=== PATIENT | female | born 1960 | race Caucasian/White ===

== ENCOUNTER 2018-11-13 22:25 | Inpatient (IN) | payer OTHER ==
[~2018-11-13] VITALS: Ht 162.6 cm; Wt 86.9 kg
--- NOTE | 2018-11-13 22:58 | NUR ---
PT HERE FOR ADB PAIN. PT IN BATHROOM. WAITING FOR PT TO RETURN FOR PIV AND BLOOD DRAW.
[2018-11-13] MEDS ORDERED: SODIUM CHLORIDE 0.9% 1,000ML IVBOLUS ONE (23:00)
[2018-11-13] MEDS ORDERED: SODIUM CHLORIDE FLUSH 10ML SYR IVF ONE (23:00)
[2018-11-13] MEDS ORDERED: HYDROmorphone 1 MG/ML, 1ML IV ONE (23:00)
[2018-11-13] MEDS ORDERED: ONDANSETRON 2MG/ML, 2ML IVPush ONE (23:00)
[2018-11-13] MEDS ORDERED: ONDANSETRON 2MG/ML, 2ML ONE (23:13)
[2018-11-13] MEDS ORDERED: HYDROmorphone 2 MG/ML, 1ML ONE (23:14)
[2018-11-13 23:17] LABS: BASOPHILS # (AUTO) 0.02 x10^3/uL (0-0.1); BASOPHILS % (AUTO) 0 % (0-1); EOSINOPHILS # (AUTO) 0.23 x10^3/uL (0-0.4); EOSINOPHILS % (AUTO) 3 % (1-7); LYMPHOCYTES # (AUTO) 1.24 x10^3/uL (1-3.4); LYMPHOCYTES % (AUTO) 14 % (22-44); MD NO; MEAN CORPUSCULAR HEMOGLOBIN 28.9 pg (27.0-34.8); MEAN CORPUSCULAR HGB CONC 33.7 g/dL (32.4-35.8); MEAN CORPUSCULAR VOLUME 85.8 fL (80-100); MEAN PLATELET VOLUME 7.7 fL (7.4-10.4); MONOCYTES # (AUTO) 0.75 x10^3/uL (0.2-0.8); MONOCYTES % (AUTO) 9 % (2-9); NEUTROPHILS # (AUTO) 6.57 x10^3/uL (1.8-6.8); NEUTROPHILS % (AUTO) 75 % (42-75); PLATELET COUNT 175 x10^3/uL (130-400); RED BLOOD COUNT 4.74 x10^6/uL (3.82-5.3); RED CELL DISTRIBUTION WIDTH 15.3 % (9.6-15.2)
[2018-11-13 23:27] LABS: ALANINE AMINOTRANSFERASE 38 U/L (12-78); ALBUMIN 4.2 g/dL (3.4-5.0); ANION GAP 6 mmol/L (5-15); CALCIUM 13.8 mg/dL (8.5-10.1); CHLORIDE 101 mmol/L (98-107); CREATININE 1.03 mg/dL (0.55-1.02)
[2018-11-13 23:30] LABS: ALKALINE PHOSPHATASE 91 U/L (45-117); BILIRUBIN,TOTAL 0.5 mg/dL (0.2-1.0); TOTAL PROTEIN 7.7 g/dL (6.4-8.2); TROPONIN I < 0.015 ng/mL (0.000-0.045)
--- NOTE | 2018-11-13 23:40 | NUR ---
PIV PLACED. PT MEDICATED FOR PAIN. FAMILY AT BEDSIDE. CALL LIGHT IN REACH
[2018-11-13 23:43] LABS: INTERNATIONAL NORMALIZED RATIO 1.02 (0.93-1.1); PROTHROMBIN TIME 10.8 Seconds (9.6-11.5)
[2018-11-13] MEDS ORDERED: OMNIPAQUE 350 MG/ML, 100ML BOTTLE ONE (23:58)
[2018-11-14 00:01] LABS: MICROSCOPIC INDICATED
[2018-11-14 00:04] LABS: CULTURE INDICATED? NO
[2018-11-14] MEDS ORDERED: MORP-52 PO (00:52)
[2018-11-14] MEDS ORDERED: CALCIUM CARBONATE 500 MG TAB.CHEW PO PRN (01:00)
[2018-11-14 01:13] VITALS: BP 147/78
[2018-11-14] MEDS: D5%-0.9% NACL 1,000 ML IV SCH ×3 (01:57→19:50)
[2018-11-14] MEDS ORDERED: LABETALOL 5MG/ML, 20ML IVPush PRN (02:00)
[2018-11-14] MEDS ORDERED: ONDANSETRON ODT 4 MG PO PRN (02:00)
[2018-11-14] MEDS ORDERED: PROMETHAZINE 25 MG/ML, 1ML IM PRN (02:00)
[2018-11-14] MEDS ORDERED: morphine SULFATE 10 MG/ML, 1ML IVPush PRN (02:00)
[2018-11-14] MEDS ORDERED: BISACODYL 10 MG SUPP PR PRN (02:00)
[2018-11-14] MEDS ORDERED: POLYETHYLENE GLYCOL 17 GM PACKET PO PRN (02:00)
[2018-11-14] MEDS ORDERED: hydrALAzine 20 MG/ML, 1ML IVPush PRN (02:00)
[2018-11-14] MEDS ORDERED: ONDANSETRON 2MG/ML, 2ML IVPush PRN (02:00)
[2018-11-14] MEDS: GABAPENTIN 300 MG CAPSULE PO PRN ×2 (02:28→17:43)
[2018-11-14] MEDS ORDERED: FAMOTIDINE 20 MG/2 ML IVPush ONE (02:30)
[2018-11-14 02:37] LABS: HEMOGLOBIN A1C 5.9 % (4.2-6.3)
[2018-11-14 02:39] LABS: FREE T4 (FREE THYROXINE) 1.38 ng/dL (0.76-1.46); THYROID STIMULATING HORMONE 0.384 mIU/L (0.358-3.740)
[2018-11-14 08:17] VITALS: BP 119/75
[2018-11-14] MEDS: SENNA/DOCUSATE TABLET PO SCH (10:47)
[2018-11-14] MEDS: HYDROcodone/APAP 5/325 TABLET PO PRN ×3 (10:47→20:52)
[2018-11-14] MEDS: FAMOTIDINE 20 MG/2 ML IVPush SCH ×2 (10:47→19:50)
[2018-11-14] MEDS ORDERED: LIDOCAINE-MPF 1%, 5ML ONE (13:17)
[2018-11-14] MEDS ORDERED: FLUMAZENIL 0.1 MG/1 ML, 5ML ONE (13:42)
[2018-11-14] MEDS ORDERED: MIDAZOLAM 1 MG/ML, 5ML ONE (13:42)
[2018-11-14] MEDS ORDERED: NALOXONE 1 MG/ML, 2ML ONE (13:42)
[2018-11-14] MEDS ORDERED: FENTANYL PF 100 MCG/2ML ONE (13:42)
[2018-11-14 20:00] VITALS: BP 124/76
[2018-11-14] MEDS ORDERED: OMNIPAQUE 350 MG/ML, 75ML BOTTLE ONE (21:47)
[2018-11-15] MEDS: HYDROcodone/APAP 5/325 TABLET PO PRN ×5 (01:54→19:30)
[2018-11-15 02:00] VITALS: BP 119/71
[2018-11-15] MEDS: D5%-0.9% NACL 1,000 ML IV SCH (03:55)
[2018-11-15 04:57] LABS: BASOPHILS # (AUTO) 0.02 x10^3/uL (0-0.1); BASOPHILS % (AUTO) 0 % (0-1); EOSINOPHILS # (AUTO) 0.13 x10^3/uL (0-0.4); EOSINOPHILS % (AUTO) 3 % (1-7); LYMPHOCYTES # (AUTO) 0.79 x10^3/uL (1-3.4); LYMPHOCYTES % (AUTO) 16 % (22-44); MD NO; MEAN CORPUSCULAR HEMOGLOBIN 29.2 pg (27.0-34.8); MEAN CORPUSCULAR HGB CONC 33.9 g/dL (32.4-35.8); MEAN CORPUSCULAR VOLUME 86.2 fL (80-100); MEAN PLATELET VOLUME 7.9 fL (7.4-10.4); MONOCYTES # (AUTO) 0.35 x10^3/uL (0.2-0.8); MONOCYTES % (AUTO) 7 % (2-9); NEUTROPHILS # (AUTO) 3.62 x10^3/uL (1.8-6.8); NEUTROPHILS % (AUTO) 74 % (42-75); PLATELET COUNT 105 x10^3/uL (130-400); RED BLOOD COUNT 3.59 x10^6/uL (3.82-5.3); RED CELL DISTRIBUTION WIDTH 15.4 % (9.6-15.2)
[2018-11-15 05:03] LABS: ANION GAP 7 mmol/L (5-15); CALCIUM 12.3 mg/dL (8.5-10.1); CHLORIDE 108 mmol/L (98-107)
[2018-11-15 05:07] LABS: ALANINE AMINOTRANSFERASE 25 U/L (12-78); ALKALINE PHOSPHATASE 64 U/L (45-117); BILIRUBIN,TOTAL 0.4 mg/dL (0.2-1.0); CHOLESTEROL, TOTAL 121 mg/dL (140-239); CREATININE 0.89 mg/dL (0.55-1.02); HDL CHOL % 34 % (28-40); HDL CHOLESTEROL (DIRECT) 41 mg/dL (40-60); LDL CHOLESTEROL,CALCULATED 58 mg/dL (54-169); LDL/HDL RATIO 1.4 (0.5-3.0); TOTAL PROTEIN 5.7 g/dL (6.4-8.2); TRIGLYCERIDES 109 mg/dL (50-200); VLDL CHOLESTEROL 22 mg/dL (0-25)
[2018-11-15] MEDS: GABAPENTIN 300 MG CAPSULE PO PRN ×2 (05:57→17:30)
[2018-11-15 07:15] VITALS: BP 115/71
[2018-11-15] MEDS ORDERED: POTASSIUM CHLORIDE 20 MEQ TAB.ER.PRT PO ONE (08:30)
[2018-11-15] MEDS: SENNA/DOCUSATE TABLET PO SCH (09:00)
[2018-11-15] MEDS: FAMOTIDINE 20 MG/2 ML IVPush SCH ×2 (09:43→19:29)
[2018-11-15 12:44] VITALS: BP 107/64
[2018-11-15 19:28] VITALS: BP 132/69
[2018-11-16] MEDS: HYDROcodone/APAP 5/325 TABLET PO PRN ×6 (00:15→21:12)
[2018-11-16 00:18] VITALS: BP 120/83
[2018-11-16] MEDS: GABAPENTIN 300 MG CAPSULE PO PRN (05:59)
[2018-11-16 07:30] VITALS: BP 128/55
[2018-11-16] MEDS ORDERED: PAMIDRONATE 90 MG in SODIUM CHLORIDE 0.9% 500 ML IV ONE (08:00)
[2018-11-16] MEDS: FAMOTIDINE 20 MG/2 ML IVPush SCH ×2 (08:49→21:12)
[2018-11-16] MEDS: SENNA/DOCUSATE TABLET PO SCH (08:49)
[2018-11-16] MEDS ORDERED: GADOBUTROL 10 MMOL/10 ML PFS ONE (10:44)
[2018-11-16 13:45] VITALS: BP 114/70
[2018-11-16] MEDS ORDERED: GABAPENTIN 300 MG CAPSULE PO SCH (16:00)
[2018-11-16 19:08] VITALS: BP 103/64
[2018-11-16] MEDS: DEXAMETHASONE 4 MG/ML, 1ML IVPush SCH (21:12)
[2018-11-17 00:48] VITALS: BP 114/77
[2018-11-17] MEDS: GABAPENTIN 300 MG CAPSULE PO SCH ×3 (01:11→17:09)
[2018-11-17] MEDS: HYDROcodone/APAP 5/325 TABLET PO PRN ×4 (01:11→21:16)
[2018-11-17 07:25] VITALS: BP 102/64
[2018-11-17] MEDS: DEXAMETHASONE 4 MG/ML, 1ML IVPush SCH ×2 (08:30→17:09)
[2018-11-17] MEDS: SENNA/DOCUSATE TABLET PO SCH (08:30)
[2018-11-17] MEDS: FAMOTIDINE 20 MG/2 ML IVPush SCH ×2 (08:30→20:10)
[2018-11-17 11:53] LABS: BASOPHILS % (AUTO) 0 % (0-1); EOSINOPHILS # (AUTO) 0.04 x10^3/uL (0-0.4); EOSINOPHILS % (AUTO) 1 % (1-7); LYMPHOCYTES # (AUTO) 0.34 x10^3/uL (1-3.4); LYMPHOCYTES % (AUTO) 5 % (22-44); MD NO; MEAN CORPUSCULAR HEMOGLOBIN 29.4 pg (27.0-34.8); MEAN CORPUSCULAR HGB CONC 34.6 g/dL (32.4-35.8); MEAN PLATELET VOLUME 7.9 fL (7.4-10.4); MONOCYTES # (AUTO) 0.25 x10^3/uL (0.2-0.8); MONOCYTES % (AUTO) 4 % (2-9); NEUTROPHILS # (AUTO) 5.95 x10^3/uL (1.8-6.8); NEUTROPHILS % (AUTO) 91 % (42-75); PLATELET COUNT 113 x10^3/uL (130-400); RED BLOOD COUNT 3.76 x10^6/uL (3.82-5.3); RED CELL DISTRIBUTION WIDTH 14.5 % (9.6-15.2)
[2018-11-17 12:02] LABS: ANION GAP 6 mmol/L (5-15); CALCIUM 11.3 mg/dL (8.5-10.1); CHLORIDE 106 mmol/L (98-107); CREATININE 1.02 mg/dL (0.55-1.02)
[2018-11-17 13:05] VITALS: BP 108/67
[2018-11-17 19:06] VITALS: BP 105/81
[2018-11-18 00:42] VITALS: BP 105/58
[2018-11-18] MEDS: GABAPENTIN 300 MG CAPSULE PO SCH ×3 (00:45→16:25)
[2018-11-18] MEDS: DEXAMETHASONE 4 MG/ML, 1ML IVPush SCH ×4 (00:45→21:15)
[2018-11-18] MEDS: HYDROcodone/APAP 5/325 TABLET PO PRN ×2 (02:56→21:15)
[2018-11-18 05:26] LABS: ALBUMIN 3.3 g/dL (3.4-5.0); ANION GAP 7 mmol/L (5-15); CALCIUM 9.4 mg/dL (8.5-10.1); CHLORIDE 107 mmol/L (98-107)
[2018-11-18 05:30] LABS: ALANINE AMINOTRANSFERASE 38 U/L (12-78); ALKALINE PHOSPHATASE 68 U/L (45-117); BILIRUBIN,TOTAL 0.3 mg/dL (0.2-1.0); CREATININE 0.97 mg/dL (0.55-1.02); TOTAL PROTEIN 6.2 g/dL (6.4-8.2)
[2018-11-18 06:45] LABS: BASOPHILS # (AUTO) 0.01 x10^3/uL (0-0.1); BASOPHILS % (AUTO) 0 % (0-1); EOSINOPHILS # (AUTO) 0.03 x10^3/uL (0-0.4); EOSINOPHILS % (AUTO) 1 % (1-7); LYMPHOCYTES # (AUTO) 0.72 x10^3/uL (1-3.4); LYMPHOCYTES % (AUTO) 14 % (22-44); MD NO; MEAN CORPUSCULAR HEMOGLOBIN 29.3 pg (27.0-34.8); MEAN CORPUSCULAR HGB CONC 34.4 g/dL (32.4-35.8); MEAN CORPUSCULAR VOLUME 85.1 fL (80-100); MEAN PLATELET VOLUME 8.1 fL (7.4-10.4); MONOCYTES # (AUTO) 0.24 x10^3/uL (0.2-0.8); MONOCYTES % (AUTO) 5 % (2-9); NEUTROPHILS # (AUTO) 4.06 x10^3/uL (1.8-6.8); NEUTROPHILS % (AUTO) 80 % (42-75); PLATELET COUNT 107 x10^3/uL (130-400); RED BLOOD COUNT 3.46 x10^6/uL (3.82-5.3); RED CELL DISTRIBUTION WIDTH 14.9 % (9.6-15.2)
[2018-11-18] MEDS: SENNA/DOCUSATE TABLET PO SCH (08:04)
[2018-11-18] MEDS: FAMOTIDINE 20 MG/2 ML IVPush SCH ×2 (08:04→21:15)
[2018-11-18 08:55] VITALS: BP 134/72
[2018-11-18] MEDS ORDERED: POTASSIUM PHOSPHATE 22 MEQ in SODIUM CHLORIDE 0.9% 500 ML IV ONE (10:30)
[2018-11-18 14:00] VITALS: BP 107/66
[2018-11-18 19:14] VITALS: BP 102/70
[2018-11-19] MEDS: GABAPENTIN 300 MG CAPSULE PO SCH ×3 (00:50→15:42)
[2018-11-19] MEDS: HYDROcodone/APAP 5/325 TABLET PO PRN ×5 (00:50→19:38)
[2018-11-19 03:18] VITALS: BP 107/61
[2018-11-19 05:07] LABS: ANION GAP 7 mmol/L (5-15); CALCIUM 8.4 mg/dL (8.5-10.1); CHLORIDE 113 mmol/L (98-107); CREATININE 0.66 mg/dL (0.55-1.02)
[2018-11-19 05:08] LABS: BASOPHILS # (AUTO) 0.01 x10^3/uL (0-0.1); BASOPHILS % (AUTO) 0 % (0-1); EOSINOPHILS % (AUTO) 0 % (1-7); LYMPHOCYTES # (AUTO) 0.73 x10^3/uL (1-3.4); LYMPHOCYTES % (AUTO) 12 % (22-44); MD NO; MEAN CORPUSCULAR HEMOGLOBIN 29.3 pg (27.0-34.8); MEAN CORPUSCULAR HGB CONC 34.5 g/dL (32.4-35.8); MEAN CORPUSCULAR VOLUME 85.1 fL (80-100); MEAN PLATELET VOLUME 8.7 fL (7.4-10.4); MONOCYTES % (AUTO) 7 % (2-9); NEUTROPHILS # (AUTO) 4.78 x10^3/uL (1.8-6.8); NEUTROPHILS % (AUTO) 81 % (42-75); PLATELET COUNT 118 x10^3/uL (130-400); RED BLOOD COUNT 3.41 x10^6/uL (3.82-5.3); RED CELL DISTRIBUTION WIDTH 14.8 % (9.6-15.2)
[2018-11-19] MEDS: FAMOTIDINE 20 MG/2 ML IVPush SCH ×2 (08:04→20:58)
[2018-11-19] MEDS: DEXAMETHASONE 4 MG/ML, 1ML IVPush SCH ×3 (08:04→20:58)
[2018-11-19] MEDS: SENNA/DOCUSATE TABLET PO SCH (08:05)
[2018-11-19 08:28] VITALS: BP 114/73
[2018-11-19] MEDS ORDERED: LIDOCAINE-MPF 1%, 5ML ONE (11:10)
[2018-11-19] MEDS ORDERED: FENTANYL PF 100 MCG/2ML ONE (11:32)
[2018-11-19] MEDS ORDERED: FLUMAZENIL 0.1 MG/1 ML, 5ML ONE (11:32)
[2018-11-19] MEDS ORDERED: NALOXONE 1 MG/ML, 2ML ONE (11:32)
[2018-11-19] MEDS ORDERED: MIDAZOLAM 1 MG/ML, 5ML ONE (11:32)
[2018-11-19 12:42] VITALS: BP 104/68
[2018-11-19 19:37] VITALS: BP 102/62
[2018-11-20] MEDS: HYDROcodone/APAP 5/325 TABLET PO PRN ×4 (00:13→13:44)
[2018-11-20] MEDS: GABAPENTIN 300 MG CAPSULE PO SCH ×2 (00:13→08:01)
[2018-11-20 02:45] VITALS: BP 101/73
[2018-11-20 07:25] VITALS: BP 111/73
[2018-11-20] MEDS: FAMOTIDINE 20 MG/2 ML IVPush SCH (08:01)
[2018-11-20] MEDS: SENNA/DOCUSATE TABLET PO SCH (08:01)
[2018-11-20] MEDS: DEXAMETHASONE 4 MG/ML, 1ML IVPush SCH (08:01)
[2018-11-20] MEDS ORDERED: HYDR-3240 PO (13:32)
[2018-11-20] MEDS ORDERED: SENN1TAB8 PO (13:32)
[2018-11-20] MEDS ORDERED: GABA300C10 PO (13:32)
[2018-11-20] MEDS ORDERED: DEXA4TAB PO (13:32)
[2018-11-20 15:00] VITALS: BP 110/72
== END 2018-11-20 17:10 | disposition home or self-care (01) | DRG 823 ==
LOC: ED 23:56 → EDIP 11-14 00:35 → 3NW 11-14 01:05 → DCLOUNGE 11-20 16:23
PROVIDERS: ADMIT Internal Medicine; ATTEND Internal Medicine
PROC: 0QB13ZX Excision of Sacrum, Percutaneous Approach, Diagnostic (ICD-10-PCS; principal; 2018-11-14)
PROC: 0QB23ZX Excision of Right Pelvic Bone, Percutaneous Approach, Diagnostic (ICD-10-PCS; 2018-11-19)
PROC: 07DR3ZX Extraction of Iliac Bone Marrow, Percutaneous Approach, Diagnostic (ICD-10-PCS; 2018-11-19)
DX: C90.30 Solitary plasmacytoma not having achieved remission (principal); N17.0 Acute kidney failure with tubular necrosis; C79.51 Secondary malignant neoplasm of bone; C77.9 Secondary and unspecified malignant neoplasm of lymph node, unspecified; M54.9 Dorsalgia, unspecified; D64.9 Anemia, unspecified; E83.52 Hypercalcemia; E86.0 Dehydration; K21.9 Gastro-esophageal reflux disease without esophagitis; M19.90 Unspecified osteoarthritis, unspecified site; M48.061 Spinal stenosis, lumbar region without neurogenic claudication; Z80.0 Family history of malignant neoplasm of digestive organs; Z80.3 Family history of malignant neoplasm of breast; Z83.3 Family history of diabetes mellitus
CPT/HCPCS: 36415; 84155; 84156; 99285; J3490; J7042; 20225; 38222; 70460; 71275; 72158; 74177; 77012; 77280; 77290; 77295; 77300; 77334; 77412; 80048; 80053; 80061; 81001; 82232; 82330; 82378; 82784; 83036; 83615; 83690; 83735; 83880; 83883; 84100; 84165; 84166; 84439; 84443; 84484; 85025; 85060; 85097; 85610; 85730; 86304; 86334; 88237; 88264; 88280; 88305; 88311; 88313; 88341; 88342; 88360; 93005; 99156; 99157; A9585; G0378; J1100; J1170; J2250; J2405; J3010; Q9967; J2310; J2430; J7030; J7040

== ENCOUNTER 2018-12-20 08:33 | Outpatient (CLI) | payer OTHER ==
[~2018-12-20 08:33] MED LIST: DEXA4TAB PO; GABA300C10 PO; HYDR-3240 PO; MORP-52 PO; SENN-177 PO
== END 2018-12-20 23:59 | disposition home or self-care (01) ==
LOC: ROC 08:33
PROVIDERS: ATTEND Radiology Radiation Oncology
DX: Z02.9 Encounter for administrative examinations, unspecified (principal)

== ENCOUNTER → 2018-12-24 | Outpatient (CLI) | payer OTHER ==
[~2018-12-24] MED LIST changes: +GADOBUTROL 10 MMOL/10 ML PFS ONE
== END | disposition home or self-care (01) ==
LOC: RAD 09:02
PROVIDERS: ATTEND Specialist
DX: M50.30 Other cervical disc degeneration, unspecified cervical region (principal); M47.812 Spondylosis without myelopathy or radiculopathy, cervical region; M47.817 Spondylosis without myelopathy or radiculopathy, lumbosacral region; M48.8X8 Other specified spondylopathies, sacral and sacrococcygeal region; Z85.79 Personal history of other malignant neoplasms of lymphoid, hematopoietic and related tissues
CPT/HCPCS: 72156; 72157; 72158; A9585

== ENCOUNTER 2019-01-21 09:35 | Outpatient (CLI) | payer SELFPAY ==
[~2019-01-21 09:35] MED LIST changes: -GADOBUTROL 10 MMOL/10 ML PFS ONE
[2019-01-21] MEDS ORDERED: OXYC15TA PO (17:02)
== END 2019-01-21 23:59 | disposition home or self-care (01) ==
LOC: ROC 09:35
PROVIDERS: ATTEND Radiology Radiation Oncology
DX: Z02.9 Encounter for administrative examinations, unspecified (principal)

== ENCOUNTER 2019-01-21 14:58 | Emergency (ER) | payer SELFPAY ==
[~2019-01-21] VITALS: Ht 162.6 cm; Wt 79.0 kg
[2019-01-21 15:33] LABS: BASOPHILS % (AUTO) 0 % (0-1); EOSINOPHILS % (AUTO) 0 % (1-7); LYMPHOCYTES # (AUTO) 0.56 x10^3/uL (1-3.4); LYMPHOCYTES % (AUTO) 7 % (22-44); MD NO; MEAN CORPUSCULAR HEMOGLOBIN 30.8 pg (27.0-34.8); MEAN CORPUSCULAR HGB CONC 33.6 g/dL (32.4-35.8); MEAN CORPUSCULAR VOLUME 91.5 fL (80-100); MEAN PLATELET VOLUME 7.8 fL (7.4-10.4); MONOCYTES # (AUTO) 0.03 x10^3/uL (0.2-0.8); MONOCYTES % (AUTO) 0 % (2-9); NEUTROPHILS # (AUTO) 7.36 x10^3/uL (1.8-6.8); NEUTROPHILS % (AUTO) 93 % (42-75); PLATELET COUNT 152 x10^3/uL (130-400); RED BLOOD COUNT 4.97 x10^6/uL (3.82-5.3); RED CELL DISTRIBUTION WIDTH 20.1 % (9.6-15.2)
[2019-01-21 15:41] LABS: ALANINE AMINOTRANSFERASE 354 U/L (12-78); ALBUMIN 3.5 g/dL (3.4-5.0); ANION GAP 9 mmol/L (5-15); CALCIUM 9.2 mg/dL (8.5-10.1); CHLORIDE 101 mmol/L (98-107); CREATININE 0.71 mg/dL (0.55-1.02)
[2019-01-21 15:43] LABS: ALKALINE PHOSPHATASE 112 U/L (45-117); BILIRUBIN,TOTAL 0.7 mg/dL (0.2-1.0)
--- NOTE | 2019-01-21 16:59 | NUR ---
PT TO ROOM FROM LOBBY
[2019-01-21] MEDS ORDERED: OXYC15TA PO (17:02)
--- NOTE | 2019-01-21 17:06 | NUR ---
PT TO ED AFTER ONCOLOGIST REFERRED FOR URGENT MRI. 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 PT WAS SUPPOSED TO HAVE SECOND ROUND OF CHEMO TODAY WHEN ONCOLOGST BECAME CONCERNED ABOUT INCREASING NUMBNESS, TINGLING AND PAIN IN RIGHT HIP AND LEG. CONNECTED TO MONITORS. VSS. AWAITING EDMD ASSESSMENT.
[2019-01-21 17:38] LABS: MICROSCOPIC NOT IND
[2019-01-21 17:41] LABS: CULTURE INDICATED? NO
--- NOTE | 2019-01-21 18:03 | NUR ---
new orders for ct received at this time. pt resting in room with family at bedside. vss. no needs at this time.
--- NOTE | 2019-01-21 19:32 | NUR ---
PT RESTING IN ROOM WITH FAMILY AT BEDSIDE. VSS. NO NEEDS AT THIS TIME. MRI COMPLETE. AWAITING RESULTS.
--- NOTE | 2019-01-21 20:25 | NUR ---
Break RN: patient able to walk with walker. passed road test. will notify ERP.
[2019-01-21 20:45] VITALS: BP 129/87
[2019-01-21] MEDS ORDERED: GADOBUTROL 10 MMOL/10 ML PFS ONE (21:06)
== END 2019-01-21 21:26 | disposition home or self-care (01) ==
LOC: ED 18:00
DX: R53.1 Weakness (principal); M53.3 Sacrococcygeal disorders, not elsewhere classified
CPT/HCPCS: 36415; 72158; 80053; 81003; 85025; 99284; A9585

== ENCOUNTER 2019-01-30 14:42 | Outpatient (CLI) | payer OTHER ==
[2019-01-30 13:24] LABS: BASOPHILS # (AUTO) 0.01 x10^3/uL (0-0.1); BASOPHILS % (AUTO) 0 % (0-1); EOSINOPHILS # (AUTO) 0.01 x10^3/uL (0-0.4); EOSINOPHILS % (AUTO) 0 % (1-7); LYMPHOCYTES # (AUTO) 0.37 x10^3/uL (1-3.4); LYMPHOCYTES % (AUTO) 8 % (22-44); MD NO; MEAN CORPUSCULAR HEMOGLOBIN 30.5 pg (27.0-34.8); MEAN CORPUSCULAR VOLUME 89.8 fL (80-100); MONOCYTES # (AUTO) 0.12 x10^3/uL (0.2-0.8); MONOCYTES % (AUTO) 2 % (2-9); NEUTROPHILS # (AUTO) 4.32 x10^3/uL (1.8-6.8); NEUTROPHILS % (AUTO) 90 % (42-75); PLATELET COUNT 184 x10^3/uL (130-400); RED BLOOD COUNT 4.18 x10^6/uL (3.82-5.3); RED CELL DISTRIBUTION WIDTH 19.1 % (9.6-15.2)
[2019-01-30 13:32] LABS: ALBUMIN 2.7 g/dL (3.4-5.0); ANION GAP 7 mmol/L (5-15); CALCIUM 9.1 mg/dL (8.5-10.1); CHLORIDE 103 mmol/L (98-107)
[2019-01-30 13:35] LABS: ALANINE AMINOTRANSFERASE 152 U/L (12-78); ALKALINE PHOSPHATASE 91 U/L (45-117); BILIRUBIN,TOTAL 0.8 mg/dL (0.2-1.0); CREATININE 0.57 mg/dL (0.55-1.02); TOTAL PROTEIN 6.6 g/dL (6.4-8.2)
[~2019-01-30 14:42] MED LIST changes: +OXYC15TA PO
[2019-01-30] MEDS ORDERED: OMNIPAQUE 350 MG/ML, 100ML BOTTLE ONE (15:00)
[2019-01-30] MEDS ORDERED: LENA20CA PO (18:28)
[2019-01-30] MEDS ORDERED: ACYC-114 PO (18:29)
[2019-01-30] MEDS ORDERED: HYDR1TAB13 PO (18:30)
[2019-01-30] MEDS ORDERED: HYDR-3652 PO (18:31)
[2019-01-31] MEDS ORDERED: GABA300C10 PO (14:56)
[2019-01-31] MEDS ORDERED: [UNRECOGNIZED DRUG - CODE] PO (14:57)
[2019-01-31] MEDS ORDERED: HYDR-3237 PO (14:58)
== END 2019-01-30 23:59 | disposition home or self-care (01) ==
LOC: RAD 14:42 → EDSTATUS 15:15 → RAD 23:59
PROVIDERS: ATTEND Specialist
DX: C90.00 Multiple myeloma not having achieved remission (principal); K76.0 Fatty (change of) liver, not elsewhere classified; M89.58 Osteolysis, other site; R07.9 Chest pain, unspecified; R06.00 Dyspnea, unspecified; R60.9 Edema, unspecified
CPT/HCPCS: 36415; 71275; 80053; 82232; 82784; 83883; 84155; 84156; 84165; 84166; 85025; 86334; 86335; 93970; Q9967

== ENCOUNTER 2019-01-30 18:11 | Inpatient (IN) | payer OTHER ==
[~2019-01-30] VITALS: Ht 162.6 cm; Wt 86.7 kg
--- NOTE | 2019-01-30 18:22 | NUR ---
PT WAS TRANSFERRED FROM RADIOLOGY TO ROOM 15 AFTER HAVING AN OUTPATIENT CT SCAN. PT WAS SEEN AT HER PMD TODAY FOR SHORTNESS OF BREATH, COUGH AND FEVERS FOR 3-4 DAYS. PT WITH HX: MULTIPLE MYELOMA. PT WITH TUMOR IN SPINE MAKING HER WHEELCHAID BOUND WITH MAX ASSISTANCE WITH HER AMBULATION. PT A&Ox4. Assessment completed. 2 side rails up. call light in reach. pt has iv already established from ct.
[2019-01-30] MEDS ORDERED: LENA20CA PO (18:28)
[2019-01-30] MEDS ORDERED: ACYC-114 PO (18:29)
[2019-01-30] MEDS ORDERED: HYDR1TAB13 PO (18:30)
[2019-01-30] MEDS ORDERED: CEFTRIAXONE PMX 1GM/50ML 50 ML IVPB ONE (18:30)
[2019-01-30] MEDS ORDERED: AZITHROMYCIN 500 MG in SODIUM CHLORIDE 0.9% 250 ML IV ONE (18:30)
[2019-01-30] MEDS ORDERED: HYDR-3652 PO (18:31)
[2019-01-30] MEDS ORDERED: CEFTRIAXONE PMX 1GM/50ML 50 ML ONE (18:43)
--- NOTE | 2019-01-30 18:47 | NUR ---
BLOOD CULTURES DRAWN X2 AND ANTIBIOTICS HUNG PER MD ORDER
--- NOTE | 2019-01-30 19:04 | NUR ---
LEFT MESSAGE FOR [facility] CALL-BACK
--- NOTE | 2019-01-30 19:08 | NUR ---
report given to sung rossi
[2019-01-30] MEDS ORDERED: POLYETHYLENE GLYCOL 17 GM PACKET PO PRN (19:30)
[2019-01-30] MEDS ORDERED: hydrALAzine 20 MG/ML, 1ML IVPush PRN (19:30)
[2019-01-30] MEDS ORDERED: ONDANSETRON 2MG/ML, 2ML IVPush PRN (19:30)
--- NOTE | 2019-01-30 19:33 | NUR ---
PT RESTING CALMY, FAMILY AT BEDSIDE, MONITORS IN PLACE, SIDERAILS UP X2, CALL LIGHT WITHIN REACH. IV ABX INFUSING
[2019-01-30 20:01] LABS: BASOPHILS # (AUTO) 0.01 x10^3/uL (0-0.1); BASOPHILS % (AUTO) 0 % (0-1); EOSINOPHILS # (AUTO) 0.01 x10^3/uL (0-0.4); EOSINOPHILS % (AUTO) 0 % (1-7); LYMPHOCYTES # (AUTO) 0.42 x10^3/uL (1-3.4); LYMPHOCYTES % (AUTO) 11 % (22-44); MD NO; MEAN CORPUSCULAR HEMOGLOBIN 31.1 pg (27.0-34.8); MEAN CORPUSCULAR HGB CONC 34.3 g/dL (32.4-35.8); MEAN CORPUSCULAR VOLUME 90.6 fL (80-100); MEAN PLATELET VOLUME 8.2 fL (7.4-10.4); MONOCYTES # (AUTO) 0.27 x10^3/uL (0.2-0.8); MONOCYTES % (AUTO) 7 % (2-9); NEUTROPHILS # (AUTO) 3.33 x10^3/uL (1.8-6.8); NEUTROPHILS % (AUTO) 83 % (42-75); PLATELET COUNT 171 x10^3/uL (130-400); RED CELL DISTRIBUTION WIDTH 18.7 % (9.6-15.2)
[2019-01-30 20:12] LABS: ALANINE AMINOTRANSFERASE 129 U/L (12-78); ALBUMIN 2.3 g/dL (3.4-5.0); ANION GAP 10 mmol/L (5-15); CALCIUM 8.7 mg/dL (8.5-10.1); CHLORIDE 103 mmol/L (98-107); CREATININE 0.58 mg/dL (0.55-1.02)
[2019-01-30 20:14] LABS: ALKALINE PHOSPHATASE 90 U/L (45-117); BILIRUBIN,TOTAL 0.4 mg/dL (0.2-1.0); TOTAL PROTEIN 5.8 g/dL (6.4-8.2)
[2019-01-30] MEDS: AZITHROMYCIN 500 MG in SODIUM CHLORIDE 0.9% 250 ML IV SCH (20:21)
[2019-01-30 20:37] VITALS: BP 105/70
[2019-01-31 01:11] VITALS: BP 114/77
[2019-01-31 05:36] LABS: ALANINE AMINOTRANSFERASE 118 U/L (12-78); ALBUMIN 2.2 g/dL (3.4-5.0); ANION GAP 9 mmol/L (5-15); CALCIUM 8.8 mg/dL (8.5-10.1); CHLORIDE 104 mmol/L (98-107); CREATININE 0.45 mg/dL (0.55-1.02)
[2019-01-31 05:39] LABS: ALKALINE PHOSPHATASE 79 U/L (45-117); BILIRUBIN,TOTAL 0.4 mg/dL (0.2-1.0); TOTAL PROTEIN 5.5 g/dL (6.4-8.2)
[2019-01-31 06:00] LABS: MD YES; MEAN CORPUSCULAR HEMOGLOBIN 30.6 pg (27.0-34.8); MEAN CORPUSCULAR HGB CONC 33.7 g/dL (32.4-35.8); MEAN CORPUSCULAR VOLUME 90.6 fL (80-100); MEAN PLATELET VOLUME 7.8 fL (7.4-10.4); PLATELET COUNT 167 x10^3/uL (130-400); RED BLOOD COUNT 3.56 x10^6/uL (3.82-5.3); RED CELL DISTRIBUTION WIDTH 19.1 % (9.6-15.2)
[2019-01-31 06:06] LABS: <PLATELET ESTIMATE> ADEQUATE; <PLT MORPHOLOGY> NORMAL PLT MORPH; ANISOCYTOSIS 1+; BAND#(MANUAL) 0.18 x10^3/uL; BANDS%(MANUAL) 4 % (0-7); EOS#(MANUAL) 0.05 x10^3/uL (0.0-0.4); EOS% (MANUAL) 1 % (1-7); LYMPH#(MANUAL) 0.45 x10^3/uL (1-3.4); LYMPHS% (MANUAL) 10 % (22-44); MONOS#(MANUAL) 0.18 x10^3/uL (0.3-2.7); MONOS% (MANUAL) 4 % (2-9); NRBC % (MANUAL) 2 % (0-1); SEG#(MANUAL) 3.65 x10^3/uL (1.8-6.8); SEGS% (MANUAL) 81 % (42-75)
[2019-01-31] MEDS: SODIUM CHLORIDE 0.9% 1,000 ML IV SCH ×2 (06:49→15:09)
[2019-01-31 06:55] VITALS: BP 104/66
[2019-01-31] MEDS ORDERED: POTASSIUM CHLORIDE 20 MEQ TAB.ER.PRT PO ONE (07:00)
[2019-01-31] MEDS: DEXAMETHASONE 4 MG TABLET PO SCH ×3 (08:22→20:28)
[2019-01-31] MEDS: GABAPENTIN 300 MG CAPSULE PO SCH ×3 (08:22→23:16)
[2019-01-31] MEDS: CEFTRIAXONE PMX 2GM/50ML 50 ML IV SCH (08:58)
[2019-01-31 12:01] VITALS: BP 114/69
[2019-01-31 14:42] VITALS: BP 115/75
[2019-01-31] MEDS ORDERED: GABA300C10 PO (14:56)
[2019-01-31] MEDS ORDERED: [UNRECOGNIZED DRUG - CODE] PO (14:57)
[2019-01-31] MEDS ORDERED: HYDR-3237 PO (14:58)
[2019-01-31] MEDS: OXYcodone IR 5MG TABLET PO PRN (16:21)
[2019-01-31 20:00] VITALS: BP 109/67
[2019-01-31] MEDS: AZITHROMYCIN 500 MG in SODIUM CHLORIDE 0.9% 250 ML IV SCH (20:28)
[2019-02-01 01:28] VITALS: BP 108/72
[2019-02-01] MEDS: SODIUM CHLORIDE 0.9% 1,000 ML IV SCH ×3 (02:52→21:09)
[2019-02-01 06:01] LABS: BASOPHILS # (AUTO) 0.01 x10^3/uL (0-0.1); BASOPHILS % (AUTO) 0 % (0-1); EOSINOPHILS # (AUTO) 0.01 x10^3/uL (0-0.4); EOSINOPHILS % (AUTO) 0 % (1-7); LYMPHOCYTES # (AUTO) 0.66 x10^3/uL (1-3.4); LYMPHOCYTES % (AUTO) 16 % (22-44); MD NO; MEAN CORPUSCULAR HEMOGLOBIN 31.2 pg (27.0-34.8); MEAN CORPUSCULAR HGB CONC 34.4 g/dL (32.4-35.8); MEAN CORPUSCULAR VOLUME 90.7 fL (80-100); MEAN PLATELET VOLUME 7.8 fL (7.4-10.4); MONOCYTES # (AUTO) 0.25 x10^3/uL (0.2-0.8); MONOCYTES % (AUTO) 6 % (2-9); NEUTROPHILS # (AUTO) 3.35 x10^3/uL (1.8-6.8); NEUTROPHILS % (AUTO) 78 % (42-75); PLATELET COUNT 157 x10^3/uL (130-400); RED CELL DISTRIBUTION WIDTH 18.9 % (9.6-15.2)
[2019-02-01 06:07] LABS: CHLORIDE 112 mmol/L (98-107)
[2019-02-01 06:16] LABS: ALBUMIN 2.1 g/dL (3.4-5.0); ANION GAP 5 mmol/L (5-15); CALCIUM 8.3 mg/dL (8.5-10.1); CREATININE 0.34 mg/dL (0.55-1.02)
[2019-02-01] MEDS ORDERED: POTASSIUM CHLORIDE 20 MEQ TAB.ER.PRT PO ONE (06:30)
[2019-02-01 08:09] VITALS: BP 111/70
[2019-02-01] MEDS: DEXAMETHASONE 4 MG TABLET PO SCH (09:00)
[2019-02-01] MEDS: GABAPENTIN 300 MG CAPSULE PO SCH ×3 (09:06→23:08)
[2019-02-01] MEDS: CEFTRIAXONE PMX 2GM/50ML 50 ML IV SCH (09:06)
[2019-02-01] MEDS: OXYcodone IR 5MG TABLET PO PRN ×2 (09:13→15:20)
[2019-02-01 14:24] VITALS: BP 109/71
[2019-02-01] MEDS: AZITHROMYCIN 500 MG in SODIUM CHLORIDE 0.9% 250 ML IV SCH (21:08)
[2019-02-01 21:27] VITALS: BP 103/65
[2019-02-01 21:32] VITALS: BP 103/65
[2019-02-02 02:18] VITALS: BP 147/78
[2019-02-02 04:15] LABS: MEAN CORPUSCULAR HEMOGLOBIN 30.3 pg (27.0-34.8); MEAN CORPUSCULAR HGB CONC 33.3 g/dL (32.4-35.8); MEAN CORPUSCULAR VOLUME 90.9 fL (80-100); MEAN PLATELET VOLUME 7.7 fL (7.4-10.4); PLATELET COUNT 171 x10^3/uL (130-400); RED BLOOD COUNT 3.36 x10^6/uL (3.82-5.3); RED CELL DISTRIBUTION WIDTH 18.7 % (9.6-15.2)
[2019-02-02 04:31] LABS: ALBUMIN 1.9 g/dL (3.4-5.0); ANION GAP 5 mmol/L (5-15); CALCIUM 7.7 mg/dL (8.5-10.1); CHLORIDE 109 mmol/L (98-107)
[2019-02-02 04:34] LABS: ALANINE AMINOTRANSFERASE 102 U/L (12-78); ALKALINE PHOSPHATASE 71 U/L (45-117); BILIRUBIN,TOTAL 0.4 mg/dL (0.2-1.0); CREATININE 0.39 mg/dL (0.55-1.02); TOTAL PROTEIN 4.8 g/dL (6.4-8.2)
[2019-02-02 05:58] LABS: MD YES
[2019-02-02 06:01] LABS: ANISOCYTOSIS 1+; BAND#(MANUAL) 0.17 x10^3/uL; BANDS%(MANUAL) 4 % (0-7); EOS#(MANUAL) 0.04 x10^3/uL (0.0-0.4); EOS% (MANUAL) 1 % (1-7); LYMPH#(MANUAL) 0.65 x10^3/uL (1-3.4); LYMPHS% (MANUAL) 15 % (22-44); METAMYELOCYTES# (MANUAL) 0.09 x10^3/uL (0-0); METAMYELOCYTES% (MANUAL) 2 % (0-1); MONOS#(MANUAL) 0.13 x10^3/uL (0.3-2.7); MONOS% (MANUAL) 3 % (2-9); MYELOCYTES# (MANUAL) 0.04 x10^3/uL (0-0); MYELOCYTES% (MANUAL) 1 % (0-0); NRBC % (MANUAL) 2 % (0-1); POLYCHROMASIA 1+; SEG#(MANUAL) 3.18 x10^3/uL (1.8-6.8); SEGS% (MANUAL) 74 % (42-75)
[2019-02-02 06:02] LABS: <PLATELET ESTIMATE> ADEQUATE; <PLT MORPHOLOGY> NORMAL PLT MORPH
[2019-02-02] MEDS: SODIUM CHLORIDE 0.9% 1,000 ML IV SCH ×2 (06:12→14:34)
[2019-02-02] MEDS: CEFTRIAXONE PMX 2GM/50ML 50 ML IV SCH (07:46)
[2019-02-02] MEDS: GABAPENTIN 300 MG CAPSULE PO SCH ×3 (07:46→22:58)
[2019-02-02 08:06] VITALS: BP 101/67
[2019-02-02] MEDS: OXYcodone IR 5MG TABLET PO PRN (14:34)
[2019-02-02 16:00] VITALS: BP 106/69
[2019-02-02 19:47] VITALS: BP 99/67
[2019-02-02] MEDS: ACETAMINOPHEN 325 MG TABLET PO PRN (20:08)
[2019-02-02] MEDS: AZITHROMYCIN 500 MG in SODIUM CHLORIDE 0.9% 250 ML IV SCH (20:08)
[2019-02-03] MEDS: SODIUM CHLORIDE 0.9% 1,000 ML IV SCH ×2 (00:04→08:00)
[2019-02-03 01:59] VITALS: BP 109/71
[2019-02-03 03:34] LABS: BASOPHILS # (AUTO) 0.01 x10^3/uL (0-0.1); BASOPHILS % (AUTO) 0 % (0-1); EOSINOPHILS # (AUTO) 0.07 x10^3/uL (0-0.4); EOSINOPHILS % (AUTO) 2 % (1-7); LYMPHOCYTES # (AUTO) 0.48 x10^3/uL (1-3.4); LYMPHOCYTES % (AUTO) 11 % (22-44); MD NO; MEAN CORPUSCULAR HEMOGLOBIN 31.2 pg (27.0-34.8); MEAN CORPUSCULAR HGB CONC 34.6 g/dL (32.4-35.8); MEAN CORPUSCULAR VOLUME 90.4 fL (80-100); MEAN PLATELET VOLUME 7.6 fL (7.4-10.4); MONOCYTES % (AUTO) 7 % (2-9); NEUTROPHILS # (AUTO) 3.38 x10^3/uL (1.8-6.8); NEUTROPHILS % (AUTO) 80 % (42-75); PLATELET COUNT 177 x10^3/uL (130-400); RED BLOOD COUNT 3.37 x10^6/uL (3.82-5.3); RED CELL DISTRIBUTION WIDTH 18.2 % (9.6-15.2)
[2019-02-03 03:43] LABS: ANION GAP 5 mmol/L (5-15); CALCIUM 7.7 mg/dL (8.5-10.1); CHLORIDE 111 mmol/L (98-107)
[2019-02-03 03:44] LABS: CREATININE 0.35 mg/dL (0.55-1.02)
[2019-02-03] MEDS: ACETAMINOPHEN 325 MG TABLET PO PRN (05:54)
[2019-02-03] MEDS ORDERED: POTASSIUM CHLORIDE 20 MEQ TAB.ER.PRT PO ONE (08:30)
[2019-02-03] MEDS ORDERED: CEFD300C37 PO (09:20)
[2019-02-03] MEDS ORDERED: AZIT500T5 PO (09:20)
[2019-02-03 09:40] VITALS: BP 101/62
[2019-02-03] MEDS: GABAPENTIN 300 MG CAPSULE PO SCH (10:08)
[2019-02-03] MEDS: OXYcodone IR 5MG TABLET PO PRN (10:08)
[2019-02-03] MEDS: CEFTRIAXONE PMX 2GM/50ML 50 ML IV SCH (10:11)
[2019-02-03 14:54] VITALS: BP 106/67
== END 2019-02-03 15:10 | disposition home or self-care (01) | DRG 193 ==
LOC: ED 18:19 → EDIP 18:57 → 4WST 20:20
PROVIDERS: ADMIT Family Medicine; ATTEND Family Medicine
DX: J15.9 Unspecified bacterial pneumonia (principal); J96.01 Acute respiratory failure with hypoxia; C90.00 Multiple myeloma not having achieved remission; J98.11 Atelectasis; C95.90 Leukemia, unspecified not having achieved remission
CPT/HCPCS: 36415; 80048; 80053; 82040; 83605; 84145; 84439; 84443; 85025; 87040; 87205; 99285; G0378; J0456; J0696; J7030; J7050